=== PATIENT | male | born 1990 | race Hispanic/Latino ===

== ENCOUNTER 2019-12-24 | Emergency (ER) | payer SELFPAY ==
[2019-12-24] MEDS ORDERED: TAM75CAP PO (10:15)
[2019-12-24] MEDS ORDERED: TESSALON PERLE100 MG PO (10:34)
== END 2019-12-24 10:27 | disposition home or self-care (01) | DRG 195 ==
DX: J10.1 Influenza due to other identified influenza virus with other respiratory manifestations (principal)

== ENCOUNTER 2020-04-20 02:36 | Emergency (ER) | payer SELFPAY ==
[~2020-04-20 02:36] MED LIST: TAM75CAP PO; TESSALON PERLE100 MG PO
[2020-04-20 03:26] LABS: HEMATOCRIT 41.8 % (39.0-50.0); HEMOGLOBIN 13.4 g/dl (14.0-18.0); IMMATURE GRANULOCYTES 0.3 % (0.0-5.0); MEAN CELL VOLUME 89.9 fL CALC (80.0-100.0); MEAN CORPUSCULAR HGB 28.8 pG CALC (26.0-32.0); MEAN CORPUSCULAR HGB CONC 32.1 g/dL CAL (32.0-36.0); NEUT# 3.92 thou/uL (1.82-7.42); RED BLOOD COUNT 4.65 mill/uL (4.70-6.10); RED CELL DISTRI WIDTH 13.4 % (11.5-15.5)
[2020-04-20 03:47] LABS: URINE BILIRUBIN - DIPSTICK NEGATIVE (NEGATIVE); URINE BLOOD DIPSTICK NEGATIVE (NEGATIVE); URINE COLOR YELLOW; URINE GLUCOSE - DIPSTICK NEGATIVE (NEGATIVE); URINE KETONE NEGATIVE (NEGATIVE); URINE LEUK ESTERASE NEGATIVE (NEGATIVE); URINE NITRITE - DIPSTICK NEGATIVE (Negative); URINE PROTEIN - DIPSTICK NEGATIVE (NEG-TRACE); URINE UROBILINOGEN - DIPSTICK 0.2 E.U./dL (0.2)
[2020-04-20 03:59] LABS: ALBUMIN 4.1 g/dL (3.2-5.0); ALKALINE PHOSPHATASE 70 u/l (38-126); AMYLASE 54 u/l (30-110); ANION GAP 11 (6-22 (CALC)); BILIRUBIN, TOTAL 0.5 mg/dL (0.0-1.4); BUN 16 mg/dL (9-20); BUN/CREATININE RATIO 21 (12-20 (CALC)); CARBON DIOXIDE 29 mmol/l (22-30); CHLORIDE 101 mmol/l (95-108); CREATININE 0.7 mg/dL (0.7-1.3); GFR > 60 ML/MIN (>=60 (CALC)); GFR FOR AFR.AMER. > 60 ML/MIN (>=60 (CALC)); LIPASE 80 u/l (23-300); SGOT/AST 28 u/l (17-59); SODIUM 137 mmol/l (137-146); TOTAL PROTEIN 7.3 g/dL (6.3-8.2)
[2020-04-20 04:11] LABS: MYOGLOBIN 31 ng/mL (0 - 121)
[2020-04-20] MEDS ORDERED: PEPCID40 MG PO (05:53)
[2020-04-20 06:15] VITALS: BP 129/70
== END 2020-04-20 06:15 | disposition home or self-care (01) | DRG 392 ==
LOC: ED 02:36
PROVIDERS: Family Medicine
DX: K29.70 Gastritis, unspecified, without bleeding (principal)
CPT/HCPCS: Q9967

== ENCOUNTER 2021-05-30 12:40 | Emergency (ER) | payer SELFPAY ==
[~2021-05-30] VITALS: Ht 167.6 cm; Wt 109.0 kg
[~2021-05-30 12:40] MED LIST changes: +PEPCID40 MG PO
[2021-05-30] MEDS ORDERED: MEDDOSEPAK PO (14:21)
[2021-05-30 14:43] VITALS: BP 128/72
== END 2021-05-30 14:56 | disposition home or self-care (01) | DRG 563 ==
LOC: ED 12:40
DX: S39.012A Strain of muscle, fascia and tendon of lower back, initial encounter (principal); F17.200 Nicotine dependence, unspecified, uncomplicated; X50.0XXA Overexertion from strenuous movement or load, initial encounter; Y93.89 Activity, other specified; Y92.89 Other specified places as the place of occurrence of the external cause; Y99.0 Civilian activity done for income or pay

== ENCOUNTER 2021-06-03 22:26 | Emergency (ER) | payer SELFPAY ==
[~2021-06-03] VITALS: Ht 165.1 cm; Wt 102.0 kg
[~2021-06-03 22:26] MED LIST changes: +MEDDOSEPAK PO
[2021-06-04 00:12] VITALS: BP 140/69
== END 2021-06-04 00:23 | disposition home or self-care (01) | DRG 605 ==
LOC: ED 22:26
PROC: 0HQ0XZZ Repair Scalp Skin, External Approach (ICD-10-PCS; principal; 2021-06-03)
DX: S01.01XA Laceration without foreign body of scalp, initial encounter (principal); W01.198A Fall on same level from slipping, tripping and stumbling with subsequent striking against other object, initial encounter; Y92.009 Unspecified place in unspecified non-institutional (private) residence as the place of occurrence of the external cause

== ENCOUNTER 2021-06-07 10:24 | Emergency (ER) | payer SELFPAY ==
[~2021-06-07] VITALS: Ht 165.1 cm; Wt 102.5 kg
[2021-06-07 11:56] VITALS: BP 137/85
== END 2021-06-07 12:02 | disposition home or self-care (01) | DRG 950 ==
LOC: ED 10:24
DX: S01.01XD Laceration without foreign body of scalp, subsequent encounter (principal); X58.XXXD Exposure to other specified factors, subsequent encounter

== ENCOUNTER 2022-04-15 06:40 | Emergency (ER) | payer SELFPAY ==
[~2022-04-15] VITALS: Ht 165.1 cm; Wt 84.0 kg
[2022-04-15 07:13] VITALS: BP 139/86
[2022-04-15 07:31] VITALS: BP 119/69
[2022-04-15 07:43] LABS: URINE BILIRUBIN - DIPSTICK NEGATIVE (NEGATIVE); URINE BLOOD DIPSTICK NEGATIVE (NEGATIVE); URINE COLOR YELLOW; URINE GLUCOSE - DIPSTICK NEGATIVE (NEGATIVE); URINE KETONE NEGATIVE (NEGATIVE); URINE LEUK ESTERASE NEGATIVE (NEGATIVE); URINE PROTEIN - DIPSTICK NEGATIVE (NEG-TRACE); URINE SPECIFIC GRAVITY >=1.030; URINE UROBILINOGEN - DIPSTICK 0.2 E.U./dL (0.2)
[2022-04-15 07:47] LABS: URINE NITRITE - DIPSTICK NEGATIVE (Negative)
[2022-04-15 07:54] LABS: HEMOGLOBIN 13.9 g/dl (14.0-18.0); IMMATURE GRANULOCYTES 0.4 % (0.0-5.0); MEAN CELL VOLUME 94.2 fL CALC (80.0-100.0); MEAN CORPUSCULAR HGB 29.8 pG CALC (26.0-32.0); MEAN CORPUSCULAR HGB CONC 31.6 g/dL CAL (32.0-36.0); NEUT# 5.86 thou/uL (1.82-7.42); RED BLOOD COUNT 4.67 mill/uL (4.70-6.10); RED CELL DISTRI WIDTH 13.7 % (11.5-15.5)
[2022-04-15 07:59] LABS: ALBUMIN 4.3 g/dL (3.2-5.0); ALKALINE PHOSPHATASE 76 u/l (38-126); ANION GAP 12 (6-22 (CALC)); BILIRUBIN, TOTAL 0.3 mg/dL (0.0-1.4); BUN 16 mg/dL (9-20); BUN/CREATININE RATIO 19 (12-20 (CALC)); CARBON DIOXIDE 28 mmol/l (22-30); CHLORIDE 102 mmol/l (95-108); CREATININE 0.9 mg/dL (0.7-1.3); GFR FOR AFR.AMER. > 60 ML/MIN (>=60 (CALC)); GFR OTHER RACES > 60 ML/MIN (>=60 (CALC)); SGOT/AST 26 u/l (17-59); SODIUM 138 mmol/l (137-146); TOTAL PROTEIN 7.9 g/dL (6.3-8.2)
[2022-04-15 08:43] VITALS: BP 119/69
== END 2022-04-15 08:54 | disposition home or self-care (01) | DRG 552 ==
LOC: ED 06:40
PROVIDERS: Family Medicine
DX: M54.9 Dorsalgia, unspecified (principal); F17.200 Nicotine dependence, unspecified, uncomplicated

== ENCOUNTER 2023-10-28 18:04 | Emergency (ER) | payer SELFPAY ==
[~2023-10-28] VITALS: Ht 165.1 cm; Wt 104.0 kg
[2023-10-28 19:42] LABS: BASO% 0.5 % (0-3); EOS% 1.6 % (0-8); HEMATOCRIT 41.3 % (39.0-50.0); HEMOGLOBIN 13.2 g/dl (14.0-18.0); IMMATURE GRANULOCYTES 0.3 % (0.0-5.0); LYMPH% 23.5 % (15-41); MEAN CORPUSCULAR HGB 29.4 pG CALC (26.0-32.0); MONO% 4.8 % (2-13); NEUT# 6.47 thou/uL (1.82-7.42); NEUT% 69.3 % (42-76); RED BLOOD COUNT 4.49 mill/uL (4.70-6.10); RED CELL DISTRI WIDTH 13.3 % (11.5-15.5)
[2023-10-28 19:53] LABS: ALBUMIN 4.7 g/dL (3.2-5.0); ALKALINE PHOSPHATASE 86 u/l (38-126); ANION GAP 17 (6-22 (CALC)); BILIRUBIN, TOTAL 0.4 mg/dL (0.2-1.3); BUN 10 mg/dL (9-20); BUN/CREATININE RATIO 12 (12-20 (CALC)); CARBON DIOXIDE 23 mmol/l (22-30); CHLORIDE 102 mmol/l (95-108); CREATININE 0.8 mg/dL (0.7-1.3); GFR FOR AFR.AMER. > 60 ML/MIN (>=60 (CALC)); GFR OTHER RACES > 60 ML/MIN (>=60 (CALC)); LIPASE 44 u/l (23-300); SGOT/AST 37 u/l (17-59); SODIUM 139 mmol/l (137-146)
[2023-10-28] MEDS ORDERED: NAPROXEN500 MG PO (20:11)
[2023-10-28] MEDS ORDERED: METHOCARBAMOL500 MG PO (20:11)
[2023-10-28 20:40] VITALS: BP 145/84
== END 2023-10-28 20:30 | disposition home or self-care (01) | DRG 313 ==
LOC: ED 18:04
PROVIDERS: Nurse Practitioner
DX: R07.9 Chest pain, unspecified (principal); Z20.822 Contact with and (suspected) exposure to COVID-19

== ENCOUNTER 2024-06-08 19:15 | Emergency (ER) | payer SELFPAY ==
[~2024-06-08] VITALS: Ht 165.1 cm; Wt 112.0 kg
[~2024-06-08 19:15] MED LIST changes: +METHOCARBAMOL500 MG PO; +NAPROXEN500 MG PO
[2024-06-08] MEDS ORDERED: ASPIRIN 81 MG/TAB PO ONE (21:30)
[2024-06-08 21:45] LABS: BASO% 0.6 % (0-3); EOS% 4.2 % (0-8); HEMATOCRIT 38.7 % (39.0-50.0); HEMOGLOBIN 12.3 g/dl (14.0-18.0); IMMATURE GRANULOCYTES 0.3 % (0.0-5.0); LYMPH% 25.3 % (15-41); MEAN CELL VOLUME 90.6 fL CALC (80.0-100.0); MEAN CORPUSCULAR HGB 28.8 pG CALC (26.0-32.0); MEAN CORPUSCULAR HGB CONC 31.8 g/dL CAL (32.0-36.0); MONO% 4.9 % (2-13); NEUT# 6.17 thou/uL (1.82-7.42); NEUT% 64.7 % (42-76); RED BLOOD COUNT 4.27 mill/uL (4.70-6.10); RED CELL DISTRI WIDTH 13.5 % (11.5-15.5)
[2024-06-08 22:40] LABS: ANION GAP 10 (6-22 (CALC)); BUN 12 mg/dL (9-20); BUN/CREATININE RATIO 15 (12-20 (CALC)); CARBON DIOXIDE 23 mmol/l (22-30); CHLORIDE 110 mmol/l (95-108); CREATININE 0.8 mg/dL (0.7-1.3); ESTIMATED GFR 119 ML/MIN (>=90 (CALC)); SODIUM 140 mmol/l (137-146)
[2024-06-08 23:58] VITALS: BP 138/85
== END 2024-06-08 23:58 | disposition home or self-care (01) | DRG 313 ==
LOC: ED 19:15
PROVIDERS: Family Medicine
DX: R07.9 Chest pain, unspecified (principal); R06.02 Shortness of breath